=== PATIENT | male | born 1985 | race Caucasian/White ===

== ENCOUNTER 2017-07-07 08:22 | Emergency (ER) | payer MEDICAID, OTHER ==
[2017-07-07] MEDS: BENOXINATE HCL/FLUORESCEIN SOD 5 ML OPHTH RIGHT EYE (12:37)
== END 2017-07-07 13:53 | disposition home or self-care (01) ==
LOC: FTE 08:22
DX: H57.11 Ocular pain, right eye (principal); R51 Headache
CPT/HCPCS: 70450; 70480; 76536; 99285-25